=== PATIENT | female | born 1960 | race Two or more races ===

== ENCOUNTER 2021-06-10 16:45 | Inpatient (IN) | payer MEDICARE, MEDICAID ==
[~2021-06-10] VITALS: Ht 162.6 cm; Wt 83.0 kg
[~2021-06-10 16:45] MED LIST: ACARBOSE; CAPT25TA PO; ENAL20TA8 PO
[2021-06-10 17:37] LABS: Basophils # (auto) 0.1 10 ^3/uL (0-0.2); Eosinophils # (auto) 0.3 10 ^3/uL (0-0.8); Eosinophils % (auto) 3.4 % (0.0-7.0); Hematocrit 28.7 % (36.0-46.0); Hemoglobin 9.5 g/dL (12.2-16.2); Lymphocytes # (auto) 1.9 10 ^3/uL (0.4-5.4); Lymphocytes % (auto) 22.9 % (10.0-50.0); Mean Corpuscular Hemoglobin 29.3 pg (28.0-32.0); Mean Corpuscular Volume 88.9 fL (80.0-100.0); Monocytes # (auto) 0.8 10 ^3/uL (0-1.3); Monocytes % (auto) 9.4 % (0.0-12.0); Neutrophils # (auto) 5.2 10 ^3/uL (1.6-8.6); Neutrophils % (auto) 63.3 % (37.0-80.0); Nucleated Red Blood Cells % 0.1 %; Red Blood Cells 3.23 10^6/uL (4.0-5.20); Red Cell Distribution Width 13.5 % (11.8-14.3); White Blood Cell 8.3 10^3/uL (4.4-10.8)
[2021-06-10 17:54] LABS: Albumin 2.8 g/dL (3.4-5.0); BUN/Creatinine Ratio 8.5; Potassium 4.4 mmol/L (3.5-5.1)
[2021-06-10 17:59] LABS: Bilirubin, Total 0.2 mg/dL (0.2-1.0); Total Protein 6.7 g/dL (6.4-8.2)
[2021-06-10 20:36] LABS: Urine Bacteria FEW /hpf (None Seen); Urine Blood Negative /uL (Negative); Urine Specific Gravity 1.006 (1.001-1.035); Urine WBC 1 /hpf (0 - 5)
[2021-06-10] MEDS ORDERED: MECLIZINE HCL 25 MG TAB PO ONE (22:15)
[2021-06-11] MEDS ORDERED: ACETAMINOPHEN 325 MG TAB PO PRN (04:45)
[2021-06-11] MEDS ORDERED: cloNIDine HCL 0.1 MG TAB PO PRN (04:45)
[2021-06-11] MEDS ORDERED: MECLIZINE HCL 25 MG TAB PO PRN (04:45)
[2021-06-11] MEDS ORDERED: ONDANSETRON HCL 4 MG/2 ML VIAL IV PRN (04:45)
[2021-06-11] MEDS ORDERED: DEXTROSE (50%) 50ML SYRG IV PRN (04:45)
[2021-06-11] MEDS: InsuLIN REG 1unit/0.01ml Soln (100units/ml) SC SCH ×2 (06:41→12:17)
[2021-06-11] MEDS: ACCU-CHEK COMFORT CURVE STRIP VI SCH ×2 (06:41→11:30)
[2021-06-11 06:56] VITALS: BP 183/64
[2021-06-11 08:30] VITALS: BP 159/86
[2021-06-11] MEDS: SEVELAMER 800 MG TAB PO SCH ×2 (08:45→12:16)
[2021-06-11 08:55] VITALS: BP 185/76
[2021-06-11] MEDS ORDERED: ENALAPRIL MALEATE 10 MG TAB PO SCH (10:00)
[2021-06-11 12:36] VITALS: BP 155/82
[2021-06-11 14:54] VITALS: BP 159/62
== END 2021-06-11 16:00 | disposition home or self-care (01) | DRG 640 ==
LOC: ER 16:45 → OVERFLOW 06-11 04:39 → WEST WING 06-11 06:05
PROVIDERS: ADMIT Nurse Practitioner; ATTEND Family Medicine
DX: E87.70 Fluid overload, unspecified (principal); N18.6 End stage renal disease; I12.0 Hypertensive chronic kidney disease with stage 5 chronic kidney disease or end stage renal disease; E11.22 Type 2 diabetes mellitus with diabetic chronic kidney disease; Z20.822 Contact with and (suspected) exposure to COVID-19; E86.9 Volume depletion, unspecified; E11.40 Type 2 diabetes mellitus with diabetic neuropathy, unspecified; E87.8 Other disorders of electrolyte and fluid balance, not elsewhere classified; E11.59 Type 2 diabetes mellitus with other circulatory complications; Z99.2 Dependence on renal dialysis
CPT/HCPCS: 36415; 70450; 70551; 71045; 80053; 81001; 82962; 83735; 83880; 84484; 85025; G0378; J1815